=== PATIENT | female | born 2000 | race Caucasian/White ===

== ENCOUNTER → 2019-02-18 15:29 | Outpatient (CLI) | payer MEDICAID, SELFPAY ==
[2019-02-18 14:04] VITALS: BMI 37.4
[2019-02-18 18:12] LABS: Chlamydia Trachomatis by PCR Negative (Negative); Neisserai gonorrhoeae by PCR Negative (Negative); Probe Check PASS; Sample Adequacy Control PASS; Specimen Processing Control PASS
== END ==
PROVIDERS: Family Provider Pediatrics; PCP Pediatrics; Referring Provider Nurse Practitioner Women's Health; Visit Provider Nurse Practitioner Women's Health
DX: N89.8 Other specified noninflammatory disorders of vagina (principal)
CPT/HCPCS: 87491; 87591

== ENCOUNTER → 2019-04-01 14:45 | Outpatient (CLI) | payer MEDICAID, SELFPAY ==
[2019-02-18 14:04] VITALS: BMI 37.4
[2019-04-01 15:52] LABS: Absolute Lymphocyte Count 2.41 X10^3/ul (0.83-4.51); Basophil# 0.04 X10^3/uL; Basophil% 0.3 % (0-1); Eosinophil# 0.18 X10^3/uL; Eosinophils% 1.6 % (0-5); Hematocrit 43.1 % (37-47); Hemoglobin 14.8 g/dl (12.0-15.0); Lymphocyte # 2.41 X10^3/ul (4.0); Lymphocyte % 20.8 % (19-41); Mean Corp Hgb Conc 34.3 g/gl (32-36); Mean Corpuscular Volume 84.5 fL (81-99); Monocyte# 0.99 X10^3/uL; Monocyte% 8.5 % (0-10); Neutrophil # 7.95 X10^3/uL (2.7-7.7); Neutrophil % 68.6 % (47-70); Platelet Count 342 K/mm3 (150-450); RBC Distribution Width CV 13.2 % (11.6-14.6); RBC Distribution Width SD 40.2 fl (35.1-43.9); White Blood Count 11.6 K/mm3 (4.4-11.0)
[2019-04-01 15:53] LABS: POSITIVE COUNT NO; POSITIVE DIFFERENTIAL NO; POSITIVE MORPHOLOGY NO
[2019-04-01 16:13] LABS: AST(SGOT) 36 U/L (15-37); Alanine Aminotransfer ALT/SGPT 82 U/L (13-56); Albumin, Serum 3.7 g/dL (3.2-5.0); Alkaline Phosphatase 109 U/L (45-117); Anion Gap 7 (5-15); BUN 16 mg/dL (7-18); Bilirubin, Direct 0.05 mg/dL (0.00-0.30); Calcium,Total 9.3 mg/dL (8.5-10.1); Chloride 106 mmol/L (98-107); Creatinine, Serum 0.84 mg/dL (0.55-1.02); EST Glomerular Filtration Rate 92 mL/min (>60); Est Glom Filt Rate - Afr Amer 111 mL/min (>60); Ferritin 29 ng/mL (8-252); GGTP 24 U/L (5-55); Globulin 4.5 g/dL (2.2-4.2); Glucose 98 mg/dL (74-106); Iron 52 ug/dL (50-170); Magnesium 1.9 mg/dL (1.6-2.6); Potassium 3.7 mmol/L (3.5-5.1); Protein, Total 8.2 g/dL (6.4-8.2); Sodium Level 139 mmol/L (136-145)
[2019-04-01 16:20] LABS: Vitamin D,25 Hydroxy 20.4 ng/mL (29.95-100.01)
[2019-04-07 03:06] LABS: Ceruloplasmin 10.1 mg/dL (19.0-39.0); HEPATITIS B SURFACE AG Negative (Negative); Hepatitis A IgM Antibody Negative (Negative); Hepatitis B Core AB IgM Negative (Negative)
[2019-04-07 12:09] LABS: AFP, Tumor Marker 5.8 ng/mL (0.0-8.3); Copper, Serum or Plasma 44 ug/dL (72-166); Hep C Antibodies 0.1 s/co ratio (0.0-0.9); Vitamin A, Retinol 60.7 ug/dL (18.8-54.9)
== END ==
PROVIDERS: Family Provider Pediatrics; PCP Pediatrics; Referring Provider Pediatrics; Visit Provider Pediatrics
DX: E83.01 Wilson's disease (principal)
CPT/HCPCS: 36415; 80048; 80074; 80076; 80178; 82105; 82306; 82390; 82525; 82728; 82977; 83540; 83735; 84590; 85025; 85610; 86704; 86705; 86706; 86708; 86709; 86803; 87340

== ENCOUNTER 2019-07-29 14:01 | Emergency (ER) | payer MEDICAID, SELFPAY ==
[2019-02-18 14:04] VITALS: BMI 37.4
[2019-07-29 14:02] VITALS: BP 163/90; PULSE 84; RESP 18; TEMP 36.8; O2SAT 99; BMI 42.3
--- NOTE | 2019-07-29 14:13 | CM.ED ---
SOCIAL WORK PATIENT SENT IN BY CRISIS. CHURCH ADMINISTRATOR, RJ HERE AND HAS COMPLETED ASSESSMENT. PLAN FOR INPATIENT PSYCH PLACEMENT. RJ TO WORK ON PLACEMENT ONCE PATIENT IS MEDICALLY CLEARED. YAZMIN RIVERA, ASSISTANT INFANT TEACHER, AGRONOMY MANAGER.
[2019-07-29 14:39] LABS: Absolute Lymphocyte Count 2.37 X10^3/uL (0.83-4.51); Absolute Neutrophil Count 7.4 X10^3/uL (2.0-7.7); Basophil# 0.06 X10^3/uL; Basophil% 0.5 % (0-1); Eosinophil# 0.24 X10^3/uL; Eosinophils% 2.2 % (0-5); Hematocrit 43.3 % (37-47); Hemoglobin 14.2 g/dL (12.0-15.0); Lymphocyte # 2.37 X10^3/ul (4.0); Lymphocyte % 21.6 % (19-41); Mean Corp Hgb Conc 32.8 g/dL (32-36); Mean Corpuscular Volume 85.4 fL (81-99); Mean Platelet Vol. 9.2 fl (6.2-12.0); Monocyte% 8.2 % (0-10); NRBC Flagged by Analyzer 0 % (0-5); Neutrophil # 7.37 X10^3/uL (2.7-7.7); Neutrophil % 67.2 % (47-70); Platelet Count 298 K/mm3 (150-450); RBC Distribution Width CV 13.2 % (11.6-14.6); RBC Distribution Width SD 40.9 fl (35.1-43.9); Red Blood Count 5.07 M/mm3 (4.2-5.4)
[2019-07-29 14:51] LABS: Anion Gap 4 (5-15); BUN 10 mg/dL (7-18); BUN/Creat Ratio 13.4 RATIO (10-20); Calcium,Total 9.3 mg/dL (8.5-10.1); Chloride 108 mmol/L (98-107); Creatinine, Serum 0.75 mg/dL (0.55-1.02); EST Glomerular Filtration Rate 105 mL/min (>60); Est Glom Filt Rate - Afr Amer 127 mL/min (>60); Estimated Creatinine Clearance 116.36 ml/min; Glucose 105 mg/dL (74-106); Potassium 3.9 mmol/L (3.5-5.1); Sodium Level 140 mmol/L (136-145)
--- NOTE | 2019-07-29 15:11 | ED.DCSUM_ITS ---
- ER Visit Summary Date of Service: 07/29/19 Chief Complaint: Suicidal thoughts History of Present Illness: The patient is a 19 F who presents with suicidal thoughts. Patient states that she wants to hang herself or possibly jump off a bridge. She states that she does not like her living situation because her parents are hoarders. She states she has felt this way for months but it came to ahead today and she is seriously considering suicide. She wants either hang herself or jump off a bridge. Her dad took her to the crisis center and they brought her here for medical clearance. She has cut herself previously. She has no history of any previous admissions. She is not on any psychiatric medica tions at this time. Physical Examination: Vital signs reviewed. HEENT exam unremarkable. Heart is regular rate and rhythm without murmurs. Lungs are clear to auscultation. Ab domen is soft and nontender. Extremities reveal no edema. Skin exam shows superficial abrasions to the right knee where she has cut herself. Neurologic exam normal. She has a flat affect. She does voice suicidal thoughts. Test Results: CBC and BMP are normal. Awaiting , tox and alcohol level Emergency Department Course and Treatment: Patient has already been evaluated by crisis. Once she is medically cleared she will be transferred to a psychiatric facility. Treatment Plan: [] Disposition: Transfer Impression: Suicidal ideation This note was generated with [employer] dictation software. It may contain incorrect words, spelling, and punctuation that were not noted in review of the chart prior to signing ED Disposition - Plan for ED Patient: Referrals: Marian Castro MD [Primary Care Provider] -
[2019-07-29 15:37] LABS: Internal QC Validated? YES +Cl - CLEAR BKGD; Pregnancy, Serum, hCG Quali. NEGATIVE Negative
[2019-07-29 15:40] LABS: Amphetamine Urine VISTA NEGATIVE (<1000 ng/mL); Barbiturate Urine VISTA NEGATIVE (< 200 ng/mL); Benzodiazepine Urine VISTA NEGATIVE (< 200 ng/mL); Cocaine Urine VISTA NEGATIVE (< 300 ng/mL); Ecstacy Urine VISTA NEGATIVE (< 500 ng/mL); Methadone Urine VISTA NEGATIVE (< 300 ng/mL); PCP Urine VISTA NEGATIVE (< 25 ng/mL); THC Urine VISTA POSITIVE (< 50 ng/mL); Vista UDS pH Range 6
--- NOTE | 2019-07-29 16:55 | CM.ED ---
SOCIAL WORK INFORMED [facility] CALLED REGARDING REFERRAL. CALL TO [facility], CAR DISPATCHER REQUESTING LABS BE RE-FAXED. LABS FAXED AT THIS TIME. YAZMIN RIVERA, ELECTRO PLATER, MECHANICAL ASSEMBLER.
[2019-07-29 18:04] VITALS: BP 154/79; PULSE 72; RESP 18; O2SAT 97
[2019-07-29] MEDS: Lithium Carbonate 300mg Capsule 300 MG PO (18:51)
[2019-07-29] MEDS: Propranolol 10 MG Tablet 20 MG PO (18:51)
[2019-07-29 20:24] VITALS: BP 154/79; PULSE 76; RESP 18; O2SAT 97
--- NOTE | 2019-07-29 20:24 | ED.RN ---
attempted to document lexapro 20mg po, unable to scan in dec.
== END 2019-07-29 20:26 ==
LOC: ED 14:36
PROVIDERS: Emergency Provider Emergency Medicine; Family Provider Pediatrics; PCP Pediatrics
DX: R45.851 Suicidal ideations (principal); Z72.89 Other problems related to lifestyle
CPT/HCPCS: 80048; 80307; 80320; 84703; 85025; 99285; G0480

== ENCOUNTER 2022-02-02 14:37 | Outpatient (CLI) | payer MEDICAID, SELFPAY ==
[2022-02-03 09:43] LABS: HIV - WCH Non-Reactive (Nonreactive); Syphilis Antibodies Non-reactive
[2022-02-07 12:00] LABS: HCV Quant. RNA PCR HCV Not Detected IU/mL (.)
[2022-02-07 12:01] LABS: Chlamydia By Nucleic Acid AMP Negative (Negative)
[2022-02-07 12:25] LABS: Gonococcus By Nucleic Acid AMP Negative (Negative)
[2022-02-07 14:04] LABS: HSV 1 IgG 2.01 index (0.00-0.90); HSV 2 IgG 1.11 index (0.00-0.90)
[2022-02-09 20:02] LABS: HPV Reflexed? NOT INDICATED
== END 2022-02-02 23:59 | disposition home or self-care (01) ==
PROVIDERS: PCP Pediatrics; Referring Provider Obstetrics & Gynecology; Visit Provider Obstetrics & Gynecology
DX: Z12.4 Encounter for screening for malignant neoplasm of cervix (principal); Z11.3 Encounter for screening for infections with a predominantly sexual mode of transmission
CPT/HCPCS: 36415; 86695; 86696; 86703; 86780; 87491; 87522; 87591; 88175; G0145